=== PATIENT | male | born 1960 | race Caucasian/White ===

== ENCOUNTER 2019-01-07 21:28 | Inpatient (IN) | payer MEDICAID ==
[~2019-01-07] VITALS: Ht 165.1 cm; Wt 82.6 kg
[~2019-01-07 21:28] MED LIST: BLOO1EAC85 MC; CLIN150C2; HYDR-3980 PO; IBUP800T48 PO; LANC-831 MC; LANC1KIT MC; LANT3I SC; METF-849 PO; NOVO3I SC; OMEP40CA6 PO; SULF1TAB7
[2019-01-07] MEDS ORDERED: PIPER-TAZO 3.375 GM IV (PMX) 100 ML IVPB STA (23:05)
[2019-01-07] MEDS ORDERED: SOD CHLORIDE 0.9% 500 ML IV STA (23:05)
[2019-01-07] MEDS ORDERED: VANCOMYCIN 1 GM (PMX) 250 ML IVPB ONE (23:30)
[2019-01-08] MEDS ORDERED: BISACODYL (EC) 5 MG TAB PO PRN (00:30)
[2019-01-08] MEDS ORDERED: NACL 0.9% 3 ML SYG IV SCH (00:30)
[2019-01-08] MEDS ORDERED: VANCOMYCIN IV PER PHARMACY XX SCH (00:30)
[2019-01-08] MEDS ORDERED: ONDANSETRON 4 MG INJ IV PRN ×2 (00:30)
[2019-01-08] MEDS ORDERED: DOCUSATE SODIUM 100 MG CAP PO PRN (00:30)
[2019-01-08] MEDS ORDERED: ACETAMINOPHEN 325 MG TAB PO PRN ×2 (00:30)
[2019-01-08] MEDS ORDERED: GLUCOSE GEL 15 GRAM TUBE PO PRN ×2 (01:00)
[2019-01-08] MEDS ORDERED: GLUCAGON 1 MG INJ IM PRN (01:00)
[2019-01-08] MEDS ORDERED: DEXTROSE 50% 50 ML SYRINGE IV PRN ×2 (01:00)
[2019-01-08] MEDS ORDERED: GLUCOSE GEL 15 GRAM TUBE BUCCAL PRN (01:00)
[2019-01-08] MEDS ORDERED: VANCOMYCIN 750 MG (PMX) 250 ML IVPB ONE (02:00)
[2019-01-08] MEDS: ACCU-CHEK XX SCH (03:11)
[2019-01-08] MEDS: INSULIN ASPART [NOVOLOG] 3 ML PEN SC SCH ×6 (03:11→20:11)
[2019-01-08] MEDS: SOD CHLORIDE 0.9% 1,000 ML IV SCH ×2 (04:48→22:16)
[2019-01-08] MEDS: PIPER-TAZO 3.375 GM IV (PMX) 100 ML IVPB SCH ×3 (05:57→17:08)
[2019-01-08] MEDS ORDERED: LISINOPRIL 10 MG TAB PO SCH (06:00)
[2019-01-08] MEDS: VANCOMYCIN 1.25 GM/NS 250 ML 250 ML IVPB SCH (13:33)
[2019-01-08] MEDS: HYDROCODONE/APAP (5/325) TAB PO PRN (19:21)
[2019-01-08 19:25] VITALS: BP 161/79; PULSE 66; RESP 19
[2019-01-08 19:59] VITALS: Ht 165.1 cm; Wt 82.6 kg
[2019-01-08] MEDS: METOPROLOL 50 MG TAB PO SCH (21:00)
[2019-01-08] MEDS ORDERED: PENDING SANTYL ORDER FOR WOUND CARE XX PRN (23:00)
[2019-01-09] VITALS (8 sets, daily range): BP systolic 109–173; BP diastolic 61–88; PULSE 66–74; RESP 16–18
[2019-01-09] MEDS: INSULIN ASPART [NOVOLOG] 3 ML PEN SC SCH ×5 (00:29→20:35)
[2019-01-09] MEDS: PIPER-TAZO 3.375 GM IV (PMX) 100 ML IVPB SCH ×3 (00:29→11:20)
[2019-01-09] MEDS: VANCOMYCIN 1.25 GM/NS 250 ML 250 ML IVPB SCH ×2 (00:29→12:09)
[2019-01-09] MEDS: ACCU-CHEK XX SCH (01:25)
[2019-01-09] MEDS: SOD CHLORIDE 0.9% 1,000 ML IV SCH ×3 (02:50→20:38)
[2019-01-09] MEDS: METOPROLOL 50 MG TAB PO SCH (08:23)
[2019-01-09] MEDS: LISINOPRIL 20 MG TAB PO SCH (08:23)
[2019-01-09] MEDS: ZINC SULFATE 220 MG CAP PO SCH (12:05)
[2019-01-09] MEDS: ASCORBIC ACID 500 MG TAB PO SCH ×2 (12:05→20:33)
[2019-01-09] MEDS: MULTIVITAMINS THERAPEUTIC TAB PO SCH (12:05)
[2019-01-09] MEDS: CEFTRIAXONE 1 GM/50 ML (PMX) 50 ML IVPB SCH (14:30)
[2019-01-09] MEDS: AMLODIPINE 10 MG TAB PO SCH (17:15)
[2019-01-09] MEDS ORDERED: INSULIN ASPART [NOVOLOG] 3 ML PEN SC SCH (17:35)
[2019-01-09] MEDS ORDERED: hydrALAzine 20 MG INJ IV PRN (20:30)
[2019-01-10] VITALS (12 sets, daily range): BP systolic 110–141; BP diastolic 60–84; PULSE 70–75; RESP 14–22
[2019-01-10] MEDS: VANCOMYCIN 1.5 GM/NS 250 ML 250 ML IVPB SCH ×3 (01:06→23:49)
[2019-01-10] MEDS: INSULIN ASPART [NOVOLOG] 3 ML PEN SC SCH ×5 (01:16→17:00)
[2019-01-10] MEDS: ACCU-CHEK XX SCH (01:16)
[2019-01-10] MEDS: LISINOPRIL 20 MG TAB PO SCH (08:32)
[2019-01-10] MEDS: AMLODIPINE 10 MG TAB PO SCH (08:33)
[2019-01-10] MEDS: ZINC SULFATE 220 MG CAP PO SCH (08:34)
[2019-01-10] MEDS: ASCORBIC ACID 500 MG TAB PO SCH ×2 (08:34→20:34)
[2019-01-10] MEDS: MULTIVITAMINS THERAPEUTIC TAB PO SCH (08:34)
[2019-01-10] MEDS: CEFTRIAXONE 1 GM/50 ML (PMX) 50 ML IVPB SCH ×2 (14:00→17:21)
[2019-01-10] MEDS ORDERED: FENTAnyl 50 MCG/ML VIAL ONE (15:23)
[2019-01-10] MEDS ORDERED: MIDAZOLAM 1 MG/ML 2 ML INJ ONE (15:23)
[2019-01-10] MEDS ORDERED: PROPOFOL 20 ML ONE (15:23)
[2019-01-10] MEDS ORDERED: ROPIVACAINE 0.2% 20 ML VIAL ONE (15:24)
[2019-01-10] MEDS ORDERED: LIDOCAINE 1% (MPF) 10 ML INJ INJ ONE (15:30)
[2019-01-10] MEDS: SOD CHLORIDE 0.9% 1,000 ML IV SCH (18:38)
[2019-01-10] MEDS ORDERED: INSULIN ASPART [NOVOLOG] 3 ML PEN SC SCH (21:00)
[2019-01-11] VITALS (19 sets, daily range): BP systolic 114–173; BP diastolic 65–87; PULSE 66–81; RESP 10–20
[2019-01-11] MEDS ORDERED: INSULIN ASPART [NOVOLOG] 3 ML PEN SC SCH (01:00)
[2019-01-11] MEDS: INSULIN ASPART [NOVOLOG] 3 ML PEN SC SCH ×6 (01:28→20:47)
[2019-01-11] MEDS: ACCU-CHEK XX SCH (02:00)
[2019-01-11] MEDS: morphine 2 MG INJ IV PRN ×2 (05:12→20:48)
[2019-01-11] MEDS ORDERED: FENTAnyl 50 MCG/ML VIAL ONE (06:57)
[2019-01-11] MEDS ORDERED: LIDOCAINE 1% (MDV) 20 ML INJ ONE (06:57)
[2019-01-11] MEDS ORDERED: IODIXANOL LOCM 100 ML BTL ONE (06:57)
[2019-01-11] MEDS ORDERED: HEPARIN 1000 UNITS/NS (A-LINE) 1,000 ML ONE (06:57)
[2019-01-11] MEDS ORDERED: MIDAZOLAM 1 MG/ML 2 ML INJ ONE (06:58)
[2019-01-11] MEDS ORDERED: SOD CHLORIDE 0.9% 500 ML ONE (08:28)
[2019-01-11] MEDS ORDERED: CLOPIDOGREL 300 MG TAB ONE (08:28)
[2019-01-11] MEDS ORDERED: CLOPIDOGREL 75 MG TAB PO ONE (08:30)
[2019-01-11] MEDS ORDERED: SOD CHLORIDE 0.9% 1,000 ML IV SCH (09:30)
[2019-01-11] MEDS: MULTIVITAMINS THERAPEUTIC TAB PO SCH (10:22)
[2019-01-11] MEDS: ZINC SULFATE 220 MG CAP PO SCH (10:22)
[2019-01-11] MEDS: LISINOPRIL 20 MG TAB PO SCH (10:22)
[2019-01-11] MEDS: AMLODIPINE 10 MG TAB PO SCH (10:22)
[2019-01-11] MEDS: ASCORBIC ACID 500 MG TAB PO SCH ×2 (10:24→20:48)
[2019-01-11] MEDS: CEFTRIAXONE 1 GM/50 ML (PMX) 50 ML IVPB SCH (13:35)
[2019-01-11] MEDS: VANCOMYCIN 1.5 GM/NS 250 ML 250 ML IVPB SCH (14:07)
[2019-01-11] MEDS: HYDROCODONE/APAP (5/325) TAB PO PRN (17:23)
[2019-01-11] MEDS: SOD CHLORIDE 0.9% 1,000 ML IV SCH ×2 (19:00→21:30)
[2019-01-12] MEDS: VANCOMYCIN HCL 1.75 GM in SOD CHLORIDE 0.9% 500 ML IVPB SCH ×2 (00:37→11:39)
[2019-01-12 02:00] VITALS: BP 131/75; PULSE 75; RESP 17
[2019-01-12] MEDS: ACCU-CHEK XX SCH (02:04)
[2019-01-12] MEDS: morphine 2 MG INJ IV PRN ×2 (07:41→12:29)
[2019-01-12 08:00] VITALS: BP 162/86; PULSE 72; RESP 17
[2019-01-12] MEDS: LISINOPRIL 20 MG TAB PO SCH (08:16)
[2019-01-12] MEDS: ASCORBIC ACID 500 MG TAB PO SCH ×2 (08:16→20:48)
[2019-01-12] MEDS: AMLODIPINE 10 MG TAB PO SCH (08:16)
[2019-01-12] MEDS: MULTIVITAMINS THERAPEUTIC TAB PO SCH (08:17)
[2019-01-12] MEDS: CLOPIDOGREL 75 MG TAB PO SCH (08:17)
[2019-01-12] MEDS: ZINC SULFATE 220 MG CAP PO SCH (08:17)
[2019-01-12] MEDS: INSULIN ASPART [NOVOLOG] 3 ML PEN SC SCH ×4 (08:19→20:49)
[2019-01-12] MEDS: SOD CHLORIDE 0.9% 1,000 ML IV SCH ×2 (10:22→11:41)
[2019-01-12] MEDS: DAKINS 0.0125%(1/40) 473 ML SOLUTION TP SCH (13:45)
[2019-01-12 14:00] VITALS: BP 160/74; PULSE 79; RESP 19
[2019-01-12] MEDS ORDERED: LIDOCAINE 1% (MPF) 5 ML VIAL SC ONE (14:30)
[2019-01-12] MEDS: CEFTRIAXONE 2 GM/50 ML (PMX) 50 ML IVPB SCH (15:50)
[2019-01-12 20:00] VITALS: BP 136/70; PULSE 80; RESP 18
[2019-01-13] MEDS: VANCOMYCIN HCL 1.75 GM in SOD CHLORIDE 0.9% 500 ML IVPB SCH ×2 (00:38→11:38)
[2019-01-13 02:12] VITALS: BP 140/80; PULSE 78; RESP 19
[2019-01-13] MEDS: ACCU-CHEK XX SCH (02:33)
[2019-01-13] MEDS: SOD CHLORIDE 0.9% 1,000 ML IV SCH ×2 (06:21→20:30)
[2019-01-13 07:49] VITALS: BP 141/78; PULSE 79; RESP 16
[2019-01-13] MEDS: ZINC SULFATE 220 MG CAP PO SCH (08:31)
[2019-01-13] MEDS: AMLODIPINE 10 MG TAB PO SCH (08:32)
[2019-01-13] MEDS: MULTIVITAMINS THERAPEUTIC TAB PO SCH (08:32)
[2019-01-13] MEDS: CLOPIDOGREL 75 MG TAB PO SCH (08:32)
[2019-01-13] MEDS: LISINOPRIL 20 MG TAB PO SCH (08:32)
[2019-01-13] MEDS: ASCORBIC ACID 500 MG TAB PO SCH ×2 (08:32→20:34)
[2019-01-13] MEDS: INSULIN ASPART [NOVOLOG] 3 ML PEN SC SCH ×4 (08:33→20:33)
[2019-01-13] MEDS: DAKINS 0.0125%(1/40) 473 ML SOLUTION TP SCH (12:12)
[2019-01-13] MEDS: morphine 2 MG INJ IV PRN ×2 (15:23→15:31)
[2019-01-13] MEDS: CEFTRIAXONE 2 GM/50 ML (PMX) 50 ML IVPB SCH (15:23)
[2019-01-13] MEDS: HYDROCODONE/APAP (5/325) TAB PO PRN (19:42)
[2019-01-13 20:10] VITALS: BP 161/88; PULSE 82; RESP 18
[2019-01-14] MEDS: SOD CHLORIDE 0.9% 1,000 ML IV SCH (00:56)
[2019-01-14] MEDS: VANCOMYCIN HCL 1.75 GM in SOD CHLORIDE 0.9% 500 ML IVPB SCH (00:56)
[2019-01-14] MEDS: ACCU-CHEK XX SCH (01:03)
[2019-01-14 02:05] VITALS: BP 109/67; PULSE 70; RESP 18
[2019-01-14] MEDS: ASCORBIC ACID 500 MG TAB PO SCH ×2 (08:16→21:07)
[2019-01-14] MEDS: CLOPIDOGREL 75 MG TAB PO SCH (08:16)
[2019-01-14] MEDS: ZINC SULFATE 220 MG CAP PO SCH (08:16)
[2019-01-14] MEDS: MULTIVITAMINS THERAPEUTIC TAB PO SCH (08:16)
[2019-01-14] MEDS: LISINOPRIL 20 MG TAB PO SCH (08:19)
[2019-01-14] MEDS: AMLODIPINE 10 MG TAB PO SCH (08:19)
[2019-01-14] MEDS: INSULIN ASPART [NOVOLOG] 3 ML PEN SC SCH ×5 (08:21→21:07)
[2019-01-14 08:48] VITALS: BP 133/75; PULSE 77; RESP 18
[2019-01-14] MEDS: VANCOMYCIN HCL 2 GM in SOD CHLORIDE 0.9% 500 ML IVPB SCH (11:43)
[2019-01-14] MEDS: DAKINS 0.0125%(1/40) 473 ML SOLUTION TP SCH (12:05)
[2019-01-14 14:37] VITALS: BP 130/80; PULSE 94; RESP 20
[2019-01-14 20:00] VITALS: BP 141/80; PULSE 79; RESP 19
[2019-01-14] MEDS: INSULIN GLARGINE [LANTus] (100 UNITS/ML) SYG SC SCH (21:06)
[2019-01-15] MEDS: VANCOMYCIN HCL 2 GM in SOD CHLORIDE 0.9% 500 ML IVPB SCH ×2 (01:03→12:32)
[2019-01-15 02:00] VITALS: BP 147/80; PULSE 73; RESP 18
[2019-01-15] MEDS: ACCU-CHEK XX SCH (02:38)
[2019-01-15] MEDS: INSULIN ASPART [NOVOLOG] 3 ML PEN SC SCH ×7 (08:25→20:20)
[2019-01-15] MEDS: ZINC SULFATE 220 MG CAP PO SCH (09:01)
[2019-01-15] MEDS: MULTIVITAMINS THERAPEUTIC TAB PO SCH (09:01)
[2019-01-15] MEDS: AMLODIPINE 10 MG TAB PO SCH (09:02)
[2019-01-15] MEDS: DAKINS 0.0125%(1/40) 473 ML SOLUTION TP SCH (09:02)
[2019-01-15] MEDS: CLOPIDOGREL 75 MG TAB PO SCH (09:02)
[2019-01-15] MEDS: ASCORBIC ACID 500 MG TAB PO SCH ×2 (09:02→20:20)
[2019-01-15] MEDS: LISINOPRIL 20 MG TAB PO SCH (09:02)
[2019-01-15 09:09] VITALS: BP 132/76; PULSE 76; RESP 17
[2019-01-15 14:35] VITALS: BP 153/78; PULSE 77; RESP 19
[2019-01-15] MEDS: HYDROCODONE/APAP (5/325) TAB PO PRN (19:54)
[2019-01-15] MEDS: INSULIN GLARGINE [LANTus] (100 UNITS/ML) SYG SC SCH (20:18)
[2019-01-15 20:36] VITALS: BP 131/81; PULSE 77; RESP 18
[2019-01-15] MEDS: morphine 2 MG INJ IV PRN (23:12)
[2019-01-16] MEDS: ACCU-CHEK XX SCH (02:08)
[2019-01-16 02:36] VITALS: BP 127/70; PULSE 70; RESP 16
[2019-01-16] MEDS: VANCOMYCIN 1.5 GM/NS 250 ML 250 ML IVPB SCH ×2 (05:30→17:54)
[2019-01-16 07:57] VITALS: BP 127/76; PULSE 69; RESP 17
[2019-01-16] MEDS: INSULIN ASPART [NOVOLOG] 3 ML PEN SC SCH ×6 (08:13→20:39)
[2019-01-16] MEDS: ASCORBIC ACID 500 MG TAB PO SCH ×2 (09:35→20:26)
[2019-01-16] MEDS: ZINC SULFATE 220 MG CAP PO SCH (09:35)
[2019-01-16] MEDS: CLOPIDOGREL 75 MG TAB PO SCH (09:35)
[2019-01-16] MEDS: MULTIVITAMINS THERAPEUTIC TAB PO SCH (09:36)
[2019-01-16] MEDS: AMLODIPINE 10 MG TAB PO SCH (09:36)
[2019-01-16] MEDS: LISINOPRIL 20 MG TAB PO SCH (09:36)
[2019-01-16] MEDS: DAKINS 0.0125%(1/40) 473 ML SOLUTION TP SCH (09:37)
[2019-01-16] MEDS ORDERED: morphine 2 MG INJ IV PRN (12:30)
[2019-01-16] MEDS: GABAPENTIN 100 MG CAP PO SCH ×3 (12:34→20:27)
[2019-01-16] MEDS ORDERED: INSULIN ASPART [NOVOLOG] 3 ML PEN SC SCH (12:40)
[2019-01-16 14:37] VITALS: BP 127/80; PULSE 78; RESP 18
[2019-01-16] MEDS: HYDROCODONE/APAP (5/325) TAB PO PRN (15:09)
[2019-01-16 20:29] VITALS: BP 129/81; PULSE 84; RESP 18
[2019-01-16] MEDS: INSULIN GLARGINE [LANTus] (100 UNITS/ML) SYG SC SCH (20:29)
[2019-01-17] MEDS: ACCU-CHEK XX SCH (02:00)
[2019-01-17 02:42] VITALS: BP 127/72; PULSE 72; RESP 18
[2019-01-17] MEDS: VANCOMYCIN 1.5 GM/NS 250 ML 250 ML IVPB SCH ×2 (06:09→18:47)
[2019-01-17 07:47] VITALS: BP 121/70; PULSE 74; RESP 18
[2019-01-17] MEDS: ZINC SULFATE 220 MG CAP PO SCH (08:09)
[2019-01-17] MEDS: LISINOPRIL 20 MG TAB PO SCH (08:09)
[2019-01-17] MEDS: MULTIVITAMINS THERAPEUTIC TAB PO SCH (08:09)
[2019-01-17] MEDS: AMLODIPINE 10 MG TAB PO SCH (08:09)
[2019-01-17] MEDS: ASCORBIC ACID 500 MG TAB PO SCH ×2 (08:09→19:50)
[2019-01-17] MEDS: CLOPIDOGREL 75 MG TAB PO SCH (08:09)
[2019-01-17] MEDS: GABAPENTIN 100 MG CAP PO SCH ×3 (08:09→19:49)
[2019-01-17] MEDS: INSULIN ASPART [NOVOLOG] 3 ML PEN SC SCH ×7 (08:11→19:50)
[2019-01-17] MEDS: DAKINS 0.0125%(1/40) 473 ML SOLUTION TP SCH (08:12)
[2019-01-17 14:29] VITALS: BP 125/75; PULSE 82; RESP 16
[2019-01-17] MEDS: INSULIN GLARGINE [LANTus] (100 UNITS/ML) SYG SC SCH (19:54)
[2019-01-17 20:00] VITALS: BP 142/75; PULSE 88; RESP 18
[2019-01-18] MEDS: HYDROCODONE/APAP (5/325) TAB PO PRN (01:13)
[2019-01-18 02:00] VITALS: BP 105/67; PULSE 85; RESP 18
[2019-01-18] MEDS: ACCU-CHEK XX SCH (02:00)
[2019-01-18] MEDS: VANCOMYCIN 1.5 GM/NS 250 ML 250 ML IVPB SCH ×2 (05:35→17:31)
[2019-01-18 07:55] VITALS: BP 121/79; PULSE 73; RESP 18
[2019-01-18] MEDS: INSULIN ASPART [NOVOLOG] 3 ML PEN SC SCH ×7 (08:00→20:29)
[2019-01-18] MEDS: CLOPIDOGREL 75 MG TAB PO SCH (08:09)
[2019-01-18] MEDS: ZINC SULFATE 220 MG CAP PO SCH (08:09)
[2019-01-18] MEDS: GABAPENTIN 100 MG CAP PO SCH ×3 (08:09→20:29)
[2019-01-18] MEDS: ASCORBIC ACID 500 MG TAB PO SCH ×2 (08:09→20:29)
[2019-01-18] MEDS: MULTIVITAMINS THERAPEUTIC TAB PO SCH (08:09)
[2019-01-18] MEDS: AMLODIPINE 10 MG TAB PO SCH (08:11)
[2019-01-18] MEDS: DAKINS 0.0125%(1/40) 473 ML SOLUTION TP SCH (08:11)
[2019-01-18] MEDS: LISINOPRIL 20 MG TAB PO SCH (08:11)
[2019-01-18 14:45] VITALS: BP 132/76; PULSE 79; RESP 16
[2019-01-18 20:00] VITALS: BP 157/84; PULSE 81; RESP 18
[2019-01-18] MEDS: INSULIN GLARGINE [LANTus] (100 UNITS/ML) SYG SC SCH (20:35)
[2019-01-19 02:00] VITALS: BP 134/78; PULSE 78; RESP 18
[2019-01-19] MEDS: ACCU-CHEK XX SCH (02:00)
[2019-01-19] MEDS: VANCOMYCIN 1.5 GM/NS 250 ML 250 ML IVPB SCH ×2 (05:51→17:37)
[2019-01-19] MEDS: CLOPIDOGREL 75 MG TAB PO SCH (08:22)
[2019-01-19] MEDS: ASCORBIC ACID 500 MG TAB PO SCH ×2 (08:22→20:21)
[2019-01-19] MEDS: MULTIVITAMINS THERAPEUTIC TAB PO SCH (08:22)
[2019-01-19] MEDS: GABAPENTIN 100 MG CAP PO SCH ×3 (08:22→20:21)
[2019-01-19] MEDS: ZINC SULFATE 220 MG CAP PO SCH (08:22)
[2019-01-19] MEDS: INSULIN ASPART [NOVOLOG] 3 ML PEN SC SCH ×7 (08:25→21:00)
[2019-01-19] MEDS: AMLODIPINE 10 MG TAB PO SCH (08:27)
[2019-01-19] MEDS: DAKINS 0.0125%(1/40) 473 ML SOLUTION TP SCH (08:27)
[2019-01-19] MEDS: LISINOPRIL 20 MG TAB PO SCH (08:27)
[2019-01-19 08:52] VITALS: BP 140/81; PULSE 81; RESP 18
[2019-01-19 14:00] VITALS: BP 131/76; PULSE 84; RESP 18
[2019-01-19 20:00] VITALS: BP 140/76; PULSE 78; RESP 19
[2019-01-19] MEDS ORDERED: INSULIN GLARGINE [LANTus] (100 UNITS/ML) SYG SC SCH (20:00)
[2019-01-20 02:00] VITALS: BP 134/72; PULSE 69; RESP 17
[2019-01-20] MEDS: ACCU-CHEK XX SCH (02:00)
[2019-01-20] MEDS: VANCOMYCIN 1.5 GM/NS 250 ML 250 ML IVPB SCH ×2 (05:34→18:10)
[2019-01-20 08:00] VITALS: BP 137/87; PULSE 75; RESP 17
[2019-01-20] MEDS: INSULIN ASPART [NOVOLOG] 3 ML PEN SC SCH ×7 (08:00→20:56)
[2019-01-20] MEDS: MULTIVITAMINS THERAPEUTIC TAB PO SCH (08:13)
[2019-01-20] MEDS: CLOPIDOGREL 75 MG TAB PO SCH (08:13)
[2019-01-20] MEDS: ZINC SULFATE 220 MG CAP PO SCH (08:14)
[2019-01-20] MEDS: LISINOPRIL 20 MG TAB PO SCH (08:14)
[2019-01-20] MEDS: AMLODIPINE 10 MG TAB PO SCH (08:14)
[2019-01-20] MEDS: ASCORBIC ACID 500 MG TAB PO SCH ×2 (08:14→20:52)
[2019-01-20] MEDS: GABAPENTIN 100 MG CAP PO SCH ×3 (08:14→20:52)
[2019-01-20] MEDS: DAKINS 0.0125%(1/40) 473 ML SOLUTION TP SCH (08:15)
[2019-01-20 13:35] VITALS: BP 153/84; PULSE 86; RESP 19
[2019-01-20] MEDS ORDERED: ALTEPLASE (CATHFLO) 2 MG INJ CATHETER PRN (15:00)
[2019-01-20] MEDS: INSULIN GLARGINE [LANTus] (100 UNITS/ML) SYG SC SCH (20:53)
[2019-01-21 01:57] VITALS: BP 136/76; PULSE 79; RESP 18
[2019-01-21] MEDS: ACCU-CHEK XX SCH (02:00)
[2019-01-21] MEDS: VANCOMYCIN HCL 1.75 GM in SOD CHLORIDE 0.9% 500 ML IVPB SCH ×2 (05:59→17:34)
[2019-01-21 07:47] VITALS: BP 130/77; PULSE 74; RESP 19
[2019-01-21] MEDS: INSULIN ASPART [NOVOLOG] 3 ML PEN SC SCH ×7 (08:00→20:44)
[2019-01-21] MEDS: CLOPIDOGREL 75 MG TAB PO SCH (09:29)
[2019-01-21] MEDS: GABAPENTIN 100 MG CAP PO SCH ×3 (09:29→20:08)
[2019-01-21] MEDS: AMLODIPINE 10 MG TAB PO SCH (09:29)
[2019-01-21] MEDS: ZINC SULFATE 220 MG CAP PO SCH (09:29)
[2019-01-21] MEDS: LISINOPRIL 20 MG TAB PO SCH (09:30)
[2019-01-21] MEDS: DAKINS 0.0125%(1/40) 473 ML SOLUTION TP SCH (09:30)
[2019-01-21] MEDS: MULTIVITAMINS THERAPEUTIC TAB PO SCH (09:30)
[2019-01-21] MEDS: ASCORBIC ACID 500 MG TAB PO SCH ×2 (09:30→20:08)
[2019-01-21 13:43] VITALS: BP 129/80; PULSE 97; RESP 16
[2019-01-21 20:00] VITALS: BP 142/85; PULSE 78; RESP 18
[2019-01-21] MEDS: INSULIN GLARGINE [LANTus] (100 UNITS/ML) SYG SC SCH (20:10)
[2019-01-22] MEDS: ACCU-CHEK XX SCH (02:00)
[2019-01-22 02:20] VITALS: BP 123/79; PULSE 89; RESP 18
[2019-01-22] MEDS: VANCOMYCIN HCL 1.75 GM in SOD CHLORIDE 0.9% 500 ML IVPB SCH ×2 (05:26→18:26)
[2019-01-22 08:00] VITALS: BP 147/87; PULSE 79; RESP 17
[2019-01-22] MEDS: INSULIN ASPART [NOVOLOG] 3 ML PEN SC SCH ×7 (08:24→19:54)
[2019-01-22] MEDS: CLOPIDOGREL 75 MG TAB PO SCH (08:28)
[2019-01-22] MEDS: LISINOPRIL 20 MG TAB PO SCH (08:29)
[2019-01-22] MEDS: MULTIVITAMINS THERAPEUTIC TAB PO SCH (08:31)
[2019-01-22] MEDS: ASCORBIC ACID 500 MG TAB PO SCH ×2 (08:31→19:52)
[2019-01-22] MEDS: GABAPENTIN 100 MG CAP PO SCH ×3 (08:31→19:52)
[2019-01-22] MEDS: AMLODIPINE 10 MG TAB PO SCH (08:32)
[2019-01-22] MEDS: DAKINS 0.0125%(1/40) 473 ML SOLUTION TP SCH (11:23)
[2019-01-22 13:30] VITALS: BP 131/74; PULSE 85; RESP 18
[2019-01-22] MEDS: INSULIN GLARGINE [LANTus] (100 UNITS/ML) SYG SC SCH (19:55)
[2019-01-22 20:00] VITALS: BP 149/81; PULSE 80; RESP 18
[2019-01-23 02:00] VITALS: BP 136/77; PULSE 78; RESP 18
[2019-01-23] MEDS: ACCU-CHEK XX SCH ×2 (02:00→20:21)
[2019-01-23] MEDS: VANCOMYCIN HCL 1.75 GM in SOD CHLORIDE 0.9% 500 ML IVPB SCH ×2 (07:00→17:36)
[2019-01-23] MEDS: INSULIN ASPART [NOVOLOG] 3 ML PEN SC SCH ×7 (08:16→20:13)
[2019-01-23] MEDS: CLOPIDOGREL 75 MG TAB PO SCH (08:17)
[2019-01-23] MEDS: GABAPENTIN 100 MG CAP PO SCH ×3 (08:17→20:13)
[2019-01-23] MEDS: LISINOPRIL 20 MG TAB PO SCH (08:17)
[2019-01-23] MEDS: MULTIVITAMINS THERAPEUTIC TAB PO SCH (08:17)
[2019-01-23] MEDS: AMLODIPINE 10 MG TAB PO SCH (08:18)
[2019-01-23] MEDS: ASCORBIC ACID 500 MG TAB PO SCH ×2 (08:18→20:13)
[2019-01-23] MEDS: DAKINS 0.0125%(1/40) 473 ML SOLUTION TP SCH (08:18)
[2019-01-23 08:30] VITALS: BP 145/77; PULSE 75; RESP 20
[2019-01-23 14:00] VITALS: BP 130/78; PULSE 82; RESP 19
[2019-01-23] MEDS: INSULIN GLARGINE [LANTus] (100 UNITS/ML) SYG SC SCH (20:14)
[2019-01-23 20:20] VITALS: BP 136/77; PULSE 76; RESP 18
[2019-01-23] MEDS ORDERED: LACTOBACILLUS RHAMNOSUS CAP PO SCH (21:00)
[2019-01-24 02:20] VITALS: BP 141/85; PULSE 67; RESP 18
[2019-01-24] MEDS: VANCOMYCIN HCL 1.75 GM in SOD CHLORIDE 0.9% 500 ML IVPB SCH ×2 (05:53→17:56)
[2019-01-24] MEDS: INSULIN ASPART [NOVOLOG] 3 ML PEN SC SCH ×7 (07:57→20:49)
[2019-01-24 08:00] VITALS: BP 130/79; PULSE 73; RESP 20
[2019-01-24] MEDS: DAKINS 0.0125%(1/40) 473 ML SOLUTION TP SCH ×2 (08:02→17:28)
[2019-01-24] MEDS: AMLODIPINE 10 MG TAB PO SCH (08:51)
[2019-01-24] MEDS: GABAPENTIN 100 MG CAP PO SCH ×3 (08:51→20:43)
[2019-01-24] MEDS: LISINOPRIL 20 MG TAB PO SCH (08:51)
[2019-01-24] MEDS: MULTIVITAMINS THERAPEUTIC TAB PO SCH (08:51)
[2019-01-24] MEDS: ASCORBIC ACID 500 MG TAB PO SCH ×2 (08:51→20:43)
[2019-01-24] MEDS: CLOPIDOGREL 75 MG TAB PO SCH (08:51)
[2019-01-24 14:00] VITALS: BP 128/68; PULSE 84; RESP 18
[2019-01-24] MEDS: HYDROCODONE/APAP (5/325) TAB PO PRN (17:36)
[2019-01-24 20:40] VITALS: BP 140/69; PULSE 70; RESP 16
[2019-01-24] MEDS: INSULIN GLARGINE [LANTus] (100 UNITS/ML) SYG SC SCH (20:47)
[2019-01-25] MEDS: HYDROCODONE/APAP (5/325) TAB PO PRN ×2 (00:39→09:37)
[2019-01-25] MEDS: ACCU-CHEK XX SCH (01:32)
[2019-01-25 02:32] VITALS: BP 119/73; PULSE 77; RESP 20
[2019-01-25] MEDS: VANCOMYCIN HCL 1.75 GM in SOD CHLORIDE 0.9% 500 ML IVPB SCH ×2 (06:01→17:42)
[2019-01-25] MEDS: INSULIN ASPART [NOVOLOG] 3 ML PEN SC SCH ×7 (07:58→20:59)
[2019-01-25] MEDS: MULTIVITAMINS THERAPEUTIC TAB PO SCH (08:01)
[2019-01-25] MEDS: GABAPENTIN 100 MG CAP PO SCH ×3 (08:01→20:52)
[2019-01-25] MEDS: LISINOPRIL 20 MG TAB PO SCH (08:01)
[2019-01-25] MEDS: ASCORBIC ACID 500 MG TAB PO SCH ×2 (08:01→20:52)
[2019-01-25] MEDS: CLOPIDOGREL 75 MG TAB PO SCH (08:01)
[2019-01-25] MEDS: AMLODIPINE 10 MG TAB PO SCH (08:01)
[2019-01-25 08:21] VITALS: BP 133/79; PULSE 68; RESP 18
[2019-01-25] MEDS: DAKINS 0.0125%(1/40) 473 ML SOLUTION TP SCH (11:52)
[2019-01-25 14:43] VITALS: BP 117/75; PULSE 76; RESP 18
[2019-01-25 20:35] VITALS: BP 140/79; PULSE 77; RESP 20
[2019-01-25] MEDS: INSULIN GLARGINE [LANTus] (100 UNITS/ML) SYG SC SCH (20:54)
[2019-01-26] MEDS: ACCU-CHEK XX SCH (02:00)
[2019-01-26 02:17] VITALS: PULSE 73
[2019-01-26 03:00] VITALS: BP 145/78; PULSE 73; RESP 18
[2019-01-26] MEDS: VANCOMYCIN HCL 1.75 GM in SOD CHLORIDE 0.9% 500 ML IVPB SCH (05:56)
[2019-01-26 08:00] VITALS: BP 158/79; PULSE 73; RESP 18
[2019-01-26] MEDS: INSULIN ASPART [NOVOLOG] 3 ML PEN SC SCH ×4 (08:00→12:32)
[2019-01-26] MEDS: MULTIVITAMINS THERAPEUTIC TAB PO SCH (08:42)
[2019-01-26] MEDS: GABAPENTIN 100 MG CAP PO SCH ×2 (08:42→12:32)
[2019-01-26] MEDS: CLOPIDOGREL 75 MG TAB PO SCH (08:43)
[2019-01-26] MEDS: ASCORBIC ACID 500 MG TAB PO SCH (08:43)
[2019-01-26] MEDS: LISINOPRIL 20 MG TAB PO SCH (08:43)
[2019-01-26] MEDS: AMLODIPINE 10 MG TAB PO SCH (08:43)
[2019-01-26] MEDS: HYDROCODONE/APAP (5/325) TAB PO PRN (11:16)
[2019-01-26 14:00] VITALS: BP 122/75; PULSE 74; RESP 18
== END 2019-01-26 15:00 | disposition home health service (06) | DRG 253 ==
LOC: FTE 21:28 → PP2 23:58 → SUATTDRO 01-08 08:45 → PP2 01-08 19:52
PROVIDERS: ADMIT Family Medicine; ATTEND Internal Medicine
PROC: 0JBQ0ZZ Excision of Right Foot Subcutaneous Tissue and Fascia, Open Approach (ICD-10-PCS; 2019-01-10)
PROC: 047R3ZZ Dilation of Right Posterior Tibial Artery, Percutaneous Approach (ICD-10-PCS; 2019-01-11)
PROC: 047V3ZZ Dilation of Right Foot Artery, Percutaneous Approach (ICD-10-PCS; 2019-01-11)
PROC: B41DYZZ Fluoroscopy of Aorta and Bilateral Lower Extremity Arteries using Other Contrast (ICD-10-PCS; 2019-01-11)
PROC: 047P3ZZ Dilation of Right Anterior Tibial Artery, Percutaneous Approach (ICD-10-PCS; principal; 2019-01-11 07:30)
PROC: 02HV33Z Insertion of Infusion Device into Superior Vena Cava, Percutaneous Approach (ICD-10-PCS; 2019-01-13)
DX: E11.51 Type 2 diabetes mellitus with diabetic peripheral angiopathy without gangrene (principal); M86.9 Osteomyelitis, unspecified; L03.115 Cellulitis of right lower limb; E11.621 Type 2 diabetes mellitus with foot ulcer; E11.69 Type 2 diabetes mellitus with other specified complication; L97.509 Non-pressure chronic ulcer of other part of unspecified foot with unspecified severity; E11.42 Type 2 diabetes mellitus with diabetic polyneuropathy; E11.65 Type 2 diabetes mellitus with hyperglycemia; E78.5 Hyperlipidemia, unspecified; E66.9 Obesity, unspecified; I70.201 Unspecified atherosclerosis of native arteries of extremities, right leg; R03.0 Elevated blood-pressure reading, without diagnosis of hypertension; B95.0 Streptococcus, group A, as the cause of diseases classified elsewhere; B95.8 Unspecified staphylococcus as the cause of diseases classified elsewhere; Z68.30 Body mass index [BMI] 30.0-30.9, adult; Z87.891 Personal history of nicotine dependence; Z79.84 Long term (current) use of oral hypoglycemic drugs
CPT/HCPCS: 36415; 36569; 71045; 73660; 73718; 75630; 76937; 80048; 80053; 80061; 80202; 81001; 82043; 82306; 82565; 82962; 83036; 83690; 83735; 84100; 84443; 84520; 85025; 85610; 85651; 85730; 86140; 87070; 87102; 87116; 93005; 93922; 93970; 96365; 96375; C1725; C1760; C1769; C1887; C1894; J0360; J0696; J1644; J1815; J2250; J2270; J2543; J2795; J3010; J3370; J7030; J7040; Q9967

== ENCOUNTER 2019-01-31 02:52 | Emergency (ER) | payer MEDICAID ==
[~2019-01-31] VITALS: Ht 165.1 cm; Wt 85.5 kg
[~2019-01-31 02:52] MED LIST changes: -CLIN150C2; -SULF1TAB7
[2019-01-31 02:53] VITALS: Ht 165.1 cm; Wt 85.5 kg
[2019-01-31] MEDS ORDERED: ONDANSETRON (ODT) 4 MG TAB ODT STA (03:49)
[2019-01-31] MEDS ORDERED: HYDROCODONE/APAP (10/325) TAB PO ONE (04:00)
[2019-01-31 04:58] VITALS: BP 131/71; PULSE 79; RESP 18
== END 2019-01-31 04:59 | disposition home or self-care (01) ==
LOC: FTE 02:52
DX: G89.18 Other acute postprocedural pain (principal)
CPT/HCPCS: 73630; 73660; Z7502; Z7610

== ENCOUNTER 2019-02-20 11:45 | Emergency (ER) | payer MEDICAID ==
[~2019-02-20] VITALS: Ht 165.1 cm; Wt 85.8 kg
[~2019-02-20 11:45] MED LIST changes: +OMEP40CA38 PO; -OMEP40CA6 PO
[2019-02-20 11:53] VITALS: BP 195/93; PULSE 88; RESP 18; Ht 165.1 cm; Wt 85.8 kg
== END 2019-02-20 14:05 | disposition home or self-care (01) ==
LOC: FTE 11:45
DX: M86.9 Osteomyelitis, unspecified (principal); E11.9 Type 2 diabetes mellitus without complications; Z79.4 Long term (current) use of insulin
CPT/HCPCS: 99282